=== PATIENT | female | born 1980 | race Caucasian/White ===

== ENCOUNTER 2017-10-04 08:50 | Day surgery (SDC) | payer MEDICAID, OTHER ==
--- NOTE | 2017-10-03 14:57 | HP ---
DATE OF ADMISSION: 10/04/2017 HISTORY OF PRESENT ILLNESS: The patient is a 36-year-old female patient with a draining sinus involving the right ear present and intermittent for many years. Examination demonstrates a right preauricular sinus. Patient now admitted to the hospital for surgical excision. Past medical history, allergies, daily meds, medical conditions, prior operations, clotting disorders, habits, family history, review of systems negative. PHYSICAL EXAMINATION: GENERAL: Well-developed, well-nourished female patient in no acute distress. HEENT: Ears and tympanic membranes. The ear canals and tympanic membranes are normal. There is a right preauricular sinus noted. Nose clear. Oropharynx clear. NECK: No masses or adenopathy. CHEST: Clear to P and A. HEART: Regular sinus rhythm without murmur. ABDOMEN: Soft. Bowel sounds normal. No masses or megaly. EXTREMITIES: Full range of motion without deformity. NEUROLOGIC: Physiologic. PELVIC: Not done. RECTAL: Not done. IMPRESSION: Right preauricular sinus. RECOMMENDATION: Admit for surgery. Dictated By: Ganesh Alvarez MD /qasim/mikala /Document#: [id number]
[~2017-10-04] VITALS: Ht 154.9 cm; Wt 54.9 kg
[2017-10-04 09:39] VITALS: Ht 154.9 cm; Wt 54.9 kg
[2017-10-04 09:44] VITALS: BP 105/63; PULSE 67; RESP 16
[2017-10-04] MEDS ORDERED: EPINEPHrine 1 MG INJ ONE (12:56)
[2017-10-04] MEDS ORDERED: LIDOCAINE 1% (MPF) 30 ML INJ ONE (12:56)
[2017-10-04] MEDS ORDERED: OXYCODONE/ACETAMINOPHEN (5/325) TAB PO PRN ×2 (13:00)
[2017-10-04] MEDS ORDERED: MEPERIDINE 25 MG INJ IV PRN (13:00)
[2017-10-04] MEDS ORDERED: METOCLOPRAMIDE 10 MG INJ IV PRN (13:00)
[2017-10-04] MEDS ORDERED: LABETALOL HCL 20MG INJ IV PRN (13:00)
[2017-10-04] MEDS ORDERED: DIPHENHYDRAMINE 50 MG INJ IV PRN (13:00)
[2017-10-04] MEDS ORDERED: ONDANSETRON 4 MG INJ IV PRN (13:00)
[2017-10-04] MEDS ORDERED: EPHEDrine SULFATE 50 MG/5 ML SYG IV PRN (13:00)
[2017-10-04] MEDS ORDERED: hydrALAzine 20 MG INJ IV PRN (13:00)
[2017-10-04] MEDS ORDERED: MIDAZOLAM 1 MG/ML 2 ML INJ IV PRN (13:00)
[2017-10-04] MEDS ORDERED: FENTAnyl 50 MCG/ML VIAL IV PRN ×3 (13:00)
[2017-10-04] MEDS ORDERED: LIDOCAINE 2% (SDV) 5 ML INJ ONE (13:01)
[2017-10-04] MEDS ORDERED: PROPOFOL 20 ML ONE (13:01)
[2017-10-04] MEDS ORDERED: MEPERIDINE 100 MG INJ ONE (13:01)
[2017-10-04] MEDS ORDERED: ONDANSETRON 4 MG INJ ONE (13:16)
[2017-10-04] MEDS ORDERED: METOCLOPRAMIDE 10 MG INJ ONE (13:16)
[2017-10-04] MEDS ORDERED: BACITRACIN 0.9 GM OINT ONE (13:34)
--- NOTE | 2017-10-04 13:51 | SIPON ---
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
[2017-10-04 14:25] VITALS: BP 105/61; PULSE 73; RESP 18
--- NOTE | 2017-10-05 11:34 | OPR ---
DATE OF OPERATION: 10/05/2017 PREOPERATIVE DIAGNOSIS: Right preauricular sinus and cyst. POSTOPERATIVE DIAGNOSIS: Right preauricular sinus and cyst. OPERATION PERFORMED: Excision of right preauricular sinus and cyst. OPERATIVE PROCEDURE: Patient brought to the operating room under parenteral sedation, general anesthesia by LMA. The right ear prepped and draped in the usual manner. 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 The cyst opening was probed with a lacrimal probe and appeared to end in a blind tract approximately 1.5 cm deep. The area about the cyst was marked with a methylene blue pen for excision and then localized with xylocaine 1 percent with epinephrine 1:100,000. Elliptical incision was made around the cyst opening and blunt and sharp dissection was carried out for approximately 1.5 cm. The cyst tract appeared to end blindly at this point, and was removed totally. Bleeding points were electrocoagulated for hemostasis. One vessel required clamp and 5-0 silk tie for control. The operative field was dry and was closed in layers with 4-0 chromic to the deep layer and interrupted 5-0 nylon to the skin. A light dressing was applied and the procedure terminated. Patient awakened and extubated in the operating room. Returned to recovery in excellent condition. ESTIMATED BLOOD LOSS: Nil. COMPLICATIONS: None. Dictated By: Ganesh Alvarez MD /qasim/hunter /Document#: [id number]
== END 2017-10-04 15:37 | disposition home or self-care (01) ==
LOC: SDS 08:50
PROVIDERS: ATTEND Otolaryngology Otolaryngology/Facial Plastic Surgery
DX: Q18.1 Preauricular sinus and cyst (principal)
CPT/HCPCS: 11442; 84703; 88304; J0171; J2175; J2405; J2765; Z7512; Z7610

== ENCOUNTER 2019-04-05 22:10 | Emergency (ER) | payer OTHER ==
[~2019-04-05] VITALS: Ht 154.9 cm; Wt 58.4 kg
[2019-04-05 22:13] VITALS: Ht 154.9 cm; Wt 58.4 kg
--- NOTE | 2019-04-05 23:59 | ERD ---
ER Documentation Chief Complaint Chief Complaint left knee pain while running 2 days ago HPI This is a 38-year-old female who presents here in emergency department with complaints of left knee pain. Stated he started while she was running 2 days ago, accidentally twisted his left knee, heard a crack. Able to walk but with pain. LMP: Last month. G3, P4 (with twins) A0. Denies headache, head injury, loss of consciousness, dizziness, neck pain, neck stiffness, throat pain, difficulty swallowing, difficulty breathing lying flat, shoulder pain, chest pain, back pain, abdominal pain, nausea, vomiting, constipation, diarrhea, urinary symptoms, or possibility being , loss of bowel and bladder control, difficulty walking due to pain, numbness or tingling sensation, calf pain, recent travel, recent major surgery in the last 3 weeks, calf pain, recent long travel, recent exposure to any illness, recent antibiotic use in the last 3 months, fever, chills, seizures. Past medical history: Surgical history: Social: Denies smoking, use of alcoholic beverages, use of illegal drugs. ROS All systems reviewed and are negative except as per history of present illness. Medications Home Meds Active Scripts Ibuprofen* (Motrin*) 600 Mg Tab, 600 MG PO Q6H PRN for PAIN AND OR ELEVATED TEMP, #20 TAB Prov:WES FINLEY 04/06/19 Allergies Allergies: Coded Allergies: No Known Drug Allergy (Verified Allergy, Unknown, 10/04/17) PMhx/Soc History of Surgery: Yes (C SECTION) Anesthesia Reaction: No Hx Neurological Disorder: No Hx Respiratory Disorders: No Hx Cardiac Disorders: No Hx Psychiatric Problems: No Hx Miscellaneous Medical Probl: Yes (RT PREAURICULAR CYST) Hx Alcohol Use: No Hx Substance Use: No Hx Tobacco Use: No Smoking Status: Never smoker Physical Exam Vitals Physical Exam Const: No acute distress Head: Atraumatic Eyes: Normal Conjunctiva ENT: Normal External Ears, Nose and Mouth. Neck: Full range of motion. No meningismus. Resp: Clear to auscultation bilaterally Cardio: Regular rate and rhythm, no murmurs Abd: Soft, non tender, non distended. Normal bowel sounds Skin: No petechiae or rashes Back: No midline or flank tenderness. T-spine/L-spine are midline with good and full range of motion and has no swelling/deformity/bulging/point of tenderness. Ext: No cyanosis, or edema. Left knee: Tenderness to palpation to anterior area. No obvious deformity. No obvious swelling. Good and full range of motion but with pain. Skin is not warm to touch. Skin is not red. Left calf is no tenderness to palpation. Left ankle is unremarkable. Left pedal pulses within normal limits. Capillary refills to left lower extremity is less than 2 seconds. Bilateral hips are stable and unremarkable. Right lower extremity is unremarkable. Neur: Awake and alert. No neurological deficits. Psych: Normal Mood and Affect Results 24 hrs Laboratory Tests Test 04/06/19 00:42 POC Beta HCG, Qualitative NEGATIVE Current Medications Medications Dose Sig/Dorina Start Time Status Last (Trade) Ordered Route PRN Stop Time Admin Dose Reason Admin Ketorolac 30 mg ONCE STAT 04/06/19 DC 04/06/19 Tromethamine IM 00:00 04/06/19 00:48 (Toradol) 00:03 1 tab ONCE ONCE 04/06/19 DC 04/06/19 Acetaminophen PO 00:00 04/06/19 00:48 / 00:03 Hydrocodone Bitart (Teller (5/325)) Procedures/MDM Diagnostic tests: POC urine : Negative. X-ray of the left knee: No evidence of fracture. Treatment: Toradol IM. Teller p.o. Emmett wrap. Crutches. Re-evaluation: No neurovascular deficits prior to and after the application of Emmett wrap. Stated that she feels much better at this time and that she is ready and comfortable to go home. Differential diagnosis I have low suspicion for septic joint, displaced fracture, DVT, open fracture, compartment syndrome. I cannot rule out internal derangement. Final diagnosis: Knee pain. Prescription: Motrin. Follow-up with PCP in the next 24-48 hours. PCP to do an MRI of the left knee. Come back here in the emergency department for any new symptoms or any worsening symptoms. All questions and concerns were answered. Patient and family members verbalized understanding and agreed with plan of care. Hemodynamically stable on discharge. Departure Diagnosis: Primary Impression: Knee injury Condition: Stable Additional Instructions: Follow-up with PCP in the next 24-48 hours. PCP to do an MRI of the left knee. Come back here in the emergency department for any new symptoms or any worsening symptoms. WES FINLEY April 05, 2019 23:59
[2019-04-06] MEDS ORDERED: KETOROLAC 30 MG INJ IM STA
[2019-04-06] MEDS ORDERED: HYDROCODONE/APAP (5/325) TAB PO ONE
[2019-04-06] MEDS ORDERED: IBUP-1542 PO (01:07)
[2019-04-06 01:12] VITALS: BP 126/71; PULSE 76; RESP 18
== END 2019-04-06 01:12 | disposition home or self-care (01) ==
LOC: FTE 22:10
DX: S89.92XA Unspecified injury of left lower leg, initial encounter (principal); X50.1XXA Overexertion from prolonged static or awkward postures, initial encounter; Y92.9 Unspecified place or not applicable
CPT/HCPCS: 73562; 81025; 96372; J1885; Z7502; Z7610